=== PATIENT | male | born 1955 | race Caucasian/White ===

== ENCOUNTER 2019-03-04 19:14 | Emergency (ER) | payer OTHER ==
[~2019-03-04] VITALS: Ht 172.7 cm; Wt 86.2 kg
[2019-03-04] MEDS ORDERED: GABAPENTIN300 MG ORAL (19:29)
[2019-03-04] MEDS ORDERED: IBUPROFEN600 MG ORAL (19:31)
[2019-03-04] MEDS ORDERED: SULFAMETHOXAZO480 ML ORAL (19:31)
[2019-03-04] MEDS ORDERED: TRIAMTERENE-HC1 EAC7 ORAL (19:31)
[2019-03-04] MEDS ORDERED: CEFDINIR300 MG PO (19:31)
--- NOTE | 2019-03-04 19:35 | NUR ---
ED Nurse Note: rECIEVED PT FROM HOME, PT WAS SEEN IN URGENT CARE FRIDAY WITH SPIDER BITE TO LEFT HAND, STARTED ON MEDS BUT AREA HAS WORSENED, NOTED WITH DRAINAGE AND SWELLING, PT ABLE TO MOVE HAND AND ALL PULSES PRESENT, PT DENIES ANY OTHER COMPLAITNS OR DISCOMFORTS.
--- NOTE | 2019-03-04 20:31 | Emergency Room Report ---
History of Present Illness General Chief Complaint: Skin Rash/Abscess Present Illness HPI 63 YO Male presents to the ED c/o 11/11 in severity pain, swelling, and erythema of Right ring finger x 1 week s/p spider bite. Has been taking Cefdinir and Bactrim DS with progression of his symptoms. Denies fevers or chills. Tetanus unk. Not on blood thinning medications. NO hx of immune compromise. Pt. reports significant increase in swelling compared to initial evaluation. No aggravating or relieving factors at this time. pt. reports some d/c from the wound now. Pt. denies pain with flexion or extension of the affected finger. Denies inability to flex or extend the affected finger. pt. is right hand dominant. Allergies: Coded Allergies: No Known Allergies (Unverified , 03/04/19) Patient History Past Medical History: see triage record Past Surgical History: none Pertinent Family History: none Reviewed Nursing Documentation: PMH: Agreed; PSxH: Agreed Nursing Documentation-PMH Hx Hypertension: Yes Review of Systems All Other Systems: negative except mentioned in HPI Physical Exam Vital Signs Date Time Temp Pulse Resp B/P (MAP) Pulse Ox O2 Delivery O2 Flow Rate FiO2 03/04/19 19:24 98.4 68 16 131/69 (89) 93 Room Air Sp02 EP Interpretation: reviewed, normal General Appearance: no apparent distress, alert, GCS 15, non-toxic Head: normocephalic, atraumatic Eyes: bilateral eye normal inspection, bilateral eye PERRL ENT: hearing grossly normal, normal voice Neck: full range of motion Respiratory: lungs clear, normal breath sounds, speaking full sentences Cardiovascular #1: regular rate, rhythm, normal capillary refill Cardiovascular #2: 0 carotid (R), 0 carotid (L), 0 radial (R), 0 radial (L), 0 femoral (R), 0 femoral (L), 0 dorsalis pedis (R), 0 dorsalis pedis (L) Musculoskeletal: back normal, gait/station normal, normal range of motion, non- tender - no bony ttp, inflammation - RMF at the 3rd metacarpal area proximal to the PIP joint. swelling, erythema, fluctuance and some superficial drainage. no sausage digit. Neurologic: alert, oriented x3, responsive, motor strength/tone normal, sensory intact, speech normal, grossly normal Psychiatric: judgement/insight normal Skin: other - RMF at the 3rd metacarpal area proximal to the PIP joint. swelling, erythema, 1cm area of fluctuance and some superficial drainage. no sausage digit. Lymphatic: no adenopathy Procedures Incision and Drainage Incision and Drainage : Consent: Verbal Site: dorsal RMF Blade Size: 11 I & D Procedure: betadine prep, sterile drapes applied, sterile dressing applied Wound Location: upper extremity - dorsal RMF Wound's Depth, Shape: superficial Wound Length (cm): 1 Wound Explored: contaminated - purulent drainage evacuated Splint Applied?: No Sling Applied?: No Patient Tolerated: Well Complications: None Progress sterile dressing was applied by RN. Medical Decision Making PA Attestation Dr. Louie Is my supervising Physician whom patient management has been discussed with. Diagnostic Impression: Primary Impression: Cellulitis and abscess of finger, unspecified ER Course 63 YO Male presents to the ED c/o 11/11 in severity pain, swelling, and erythema of Right ring finger x 1 week s/p spider bite. Has been taking Cefdinir and Bactrim DS with progression of his symptoms. Denies fevers or chills. Tetanus unk. Not on blood thinning medications. NO hx of immune compromise. Pt. reports significant increase in swelling compared to initial evaluation. No aggravating or relieving factors at this time. pt. reports some d/c from the wound now. Pt. denies pain with flexion or extension of the affected finger. Denies inability to flex or extend the affected finger. pt. is right hand dominant. Ddx considered but are not limited to cellulitis, abscess, cystic acne, necrotizing fasciitis, insect bite. Vital signs: are WNL, pt. is afebrile H&PE are most consistent with cellulitis and abscess of the right 3rd metacarpal area. FROM no evidence of tenosynovitis at full range of motion no evidence of tenosynovitis at this time. ORDERS: -Wound Culture: Pending ED INTERVENTIONS: -I & D. -Tdap vaccination was administered. Patient is instructed to return or follow-up with primary care for 48-hour wound check. DISCHARGE: At this time pt. is stable for d/c to home. Will provide printed patient care instructions, and any necessary prescriptions. Care plan and follow up instructions have been discussed with the patient prior to discharge. Last Vital Signs Date Time Temp Pulse Resp B/P (MAP) Pulse Ox O2 Delivery O2 Flow Rate FiO2 03/04/19 19:24 98.4 68 16 131/69 (89) 93 Room Air Disposition: HOME, SELF-CARE Condition: Stable Scripts Mupirocin* (MUPIROCIN*) 22 Gm Oint...g. 1 APPLIC TOPIC THREE TIMES A DAY, #22 GM Prov: Lizzette Mehta 03/04/19 Doxycycline Hyclate* (VIBRAMYCIN*) 100 Mg Capsule 100 MG ORAL EVERY 12 HOURS for 7 Days, #14 CAP 0 Refills Prov: Lizzette Mehta 03/04/19 Patient Instructions: Abscess Additional Instructions: Take medications as directed. Follow up with a Primary Care Provider in 3-5 days, even if your symptoms have resolved. --Please review list of primary care clinics, if you do not already have a primary care provider Return sooner to ED if new symptoms occur, or current symptoms become worse. - Please note that this Emergency Department Report was dictated using [employer] technology software, occasionally this can lead to erroneous entry secondary to interpretation by the dictation equipment. Lizzette Mehta Mar 04, 2019 20:31
[2019-03-04] MEDS ORDERED: VIBRAMYCIN100 MG ORAL (20:48)
[2019-03-04] MEDS ORDERED: MUPIROCIN22 GM TOPIC (20:48)
[2019-03-04] MEDS ORDERED: Tetanus/Diptheria/Pertussis IM ONE (21:00)
[2019-03-04 21:40] VITALS: BP 139/71
[2019-03-04 21:45] VITALS: BP 139/71
--- NOTE | 2019-03-04 21:45 | NUR ---
ER DISCHARGE NOTE: Patient is cleared to be discharged per ERMD, pt is aox4, on room air, with stable vital signs. pt was given dc and prescription instructions, pt was able to verbalize understanding, pt id band removed without complications. pt is able to ambulate with steady gait. pt took all belongings.
== END 2019-03-04 21:45 | disposition home or self-care (01) ==
LOC: EMR 20:30
DX: L03.011 Cellulitis of right finger (principal); Z23 Encounter for immunization; I10 Essential (primary) hypertension
CPT/HCPCS: 90471; 90715; 99283